=== PATIENT | female | born 2000 | race African-American/Black ===

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

== ENCOUNTER 2021-05-29 21:19 | Emergency (ER) | payer OTHER ==
[~2021-05-29 21:19] MED LIST changes: +AURYXIA210 MG PO; +IBUPROFEN800 MG PO; +PERCOCET 5/325 T1 EA PO; +SOF-LAX100 MG PO; +TUMS DUAL ACTI1 EACH PO
[2021-05-29] MEDS ORDERED: IBUPROFEN600 MG PO (22:38)
== END 2021-05-29 22:41 | disposition home or self-care (01) ==
LOC: ER1 21:19
DX: S61.411A Laceration without foreign body of right hand, initial encounter (principal); Z88.0 Allergy status to penicillin; W16.42XA Fall into unspecified water causing other injury, initial encounter; Y92.009 Unspecified place in unspecified non-institutional (private) residence as the place of occurrence of the external cause
CPT/HCPCS: 12001; 73130; 99283